=== PATIENT | female | born 1935 | race Caucasian/White ===

== ENCOUNTER → 2018-06-26 | Outpatient (CLI) | payer MEDICARE ==
[2018-06-26 12:39] LABS: BASOPHILS # (AUTO) 0.01 x10^3/uL (0-0.1); BASOPHILS % (AUTO) 0 % (0-1); EOSINOPHILS # (AUTO) 0.04 x10^3/uL (0-0.4); EOSINOPHILS % (AUTO) 1 % (1-7); LYMPHOCYTES # (AUTO) 1.51 x10^3/uL (1-3.4); LYMPHOCYTES % (AUTO) 28 % (22-44); MD NO; MEAN CORPUSCULAR HGB CONC 33.6 g/dL (32.4-35.8); MEAN CORPUSCULAR VOLUME 92.3 fL (80-100); MEAN PLATELET VOLUME 9.4 fL (7.4-10.4); MONOCYTES # (AUTO) 0.33 x10^3/uL (0.2-0.8); MONOCYTES % (AUTO) 6 % (2-9); NEUTROPHILS # (AUTO) 3.55 x10^3/uL (1.8-6.8); NEUTROPHILS % (AUTO) 65 % (42-75); PLATELET COUNT 213 x10^3/uL (130-400); RED BLOOD COUNT 4.58 x10^6/uL (3.82-5.3); RED CELL DISTRIBUTION WIDTH 13.7 % (9.6-15.2)
[2018-06-26 12:45] LABS: ALANINE AMINOTRANSFERASE 20 U/L (12-78); ALBUMIN 3.5 g/dL (3.4-5.0); ANION GAP 5 mmol/L (5-15); CALCIUM 8.7 mg/dL (8.5-10.1); CHLORIDE 105 mmol/L (98-107); CREATININE 0.87 mg/dL (0.55-1.02)
[2018-06-26 12:50] LABS: MICROSCOPIC NOT IND
[2018-06-26 12:54] LABS: ALKALINE PHOSPHATASE 55 U/L (45-117); BILIRUBIN,TOTAL 0.4 mg/dL (0.2-1.0); CHOL/HDL RATIO 2.6; CHOLESTEROL, TOTAL 184 mg/dL (140-239); HDL CHOL % 39 % (28-40); HDL CHOLESTEROL (DIRECT) 72 mg/dL (40-60); LDL CHOLESTEROL,CALCULATED 86 mg/dL (54-169); LDL/HDL RATIO 1.2 (0.5-3.0); TOTAL PROTEIN 7.2 g/dL (6.4-8.2); TRIGLYCERIDES 130 mg/dL (50-200); VLDL CHOLESTEROL 26 mg/dL (0-25)
[2018-06-26 12:55] LABS: CULTURE INDICATED? NO
== END | disposition home or self-care (01) ==
LOC: LAB 12:06
PROVIDERS: ATTEND Family Medicine
DX: Z09 Encounter for follow-up examination after completed treatment for conditions other than malignant neoplasm (principal); E03.9 Hypothyroidism, unspecified; E78.2 Mixed hyperlipidemia; D64.9 Anemia, unspecified; R35.0 Frequency of micturition
CPT/HCPCS: 36415; 80053; 80061; 81003; 84439; 84443; 85025